=== PATIENT | male | born 1995 | race Hispanic/Latino ===

== ENCOUNTER 2018-06-25 16:13 | Emergency (ER) | payer OTHER ==
[2018-06-25] MEDS ORDERED: LIDOCAINE 2%-EPI 1:200,000 20 ML VIAL IJ ONE (17:14)
== END 2018-06-25 18:15 | disposition home or self-care (01) ==
LOC: EDH 16:13
DX: S51.012A Laceration without foreign body of left elbow, initial encounter (principal); S61.412A Laceration without foreign body of left hand, initial encounter; S61.411A Laceration without foreign body of right hand, initial encounter; Z72.0 Tobacco use; W25.XXXA Contact with sharp glass, initial encounter; Y93.89 Activity, other specified; Y92.89 Other specified places as the place of occurrence of the external cause; Y99.8 Other external cause status
CPT/HCPCS: 12032; 73070; 73130; 99284; J3490

== ENCOUNTER 2018-06-25 20:12 | Emergency (ER) | payer OTHER ==
[2018-06-25] MEDS ORDERED: IBUPROFEN 600 MG TABLET ONE (20:46)
== END 2018-06-25 20:50 | disposition home or self-care (01) ==
LOC: EDH 20:12
DX: R20.2 Paresthesia of skin (principal); S51.011D Laceration without foreign body of right elbow, subsequent encounter; Z72.0 Tobacco use; X58.XXXD Exposure to other specified factors, subsequent encounter

== ENCOUNTER 2018-07-12 16:55 | Emergency (ER) | payer SELFPAY | END 2018-07-12 17:20 | disposition home or self-care (01) | LOC: EDH 16:55 | DX: S51.011D Laceration without foreign body of right elbow, subsequent encounter (principal); Z72.0 Tobacco use; X58.XXXD Exposure to other specified factors, subsequent encounter | CPT/HCPCS: 99281 ==